=== PATIENT | female | born 1995 | race Caucasian/White ===

== ENCOUNTER 2017-05-25 14:51 | Inpatient (IN) | payer OTHER, MEDICAID ==
[~2017-05-25] VITALS: Ht 160 cm; Wt 86.5 kg
--- NOTE | ~2017-05-25 | OR ---
PATIENT'S NAME: [facility] AGE: 21 Y [address] ROOM: [place] [address] LOCATION: [facility] ADMIT DATE: 05/25/2017 OR/Procedure Report DISCHARGE DATE: FAMILY PHYSICIAN: PHYSICIAN, NO ATTENDING PHYSICIAN: Kym Alford SURGEON: Kym Alford MD DIRECTOR OF OFFICIATING: DATE OF PROCEDURE: 05/25/2017 PREOPERATIVE DIAGNOSES: 1. Intrauterine at 37 weeks and 2 days. 2. Dichorionic, diamniotic twins. 3. Gestational hypertension. 4. Intrauterine growth restriction of twin B. 5. Anemia. POSTOPERATIVE DIAGNOSES: 1. Intrauterine at 37 weeks and 2 days. 2. Dichorionic-diamniotic twins. 3. Gestational hypertension. 4. Intrauterine growth restriction of twin B. 5. Anemia. PROCEDURE: Primary low transverse section. DIRECTOR OF OFFICIATING SURGEON: Dr. Syed. Dr. Syed was necessary for adequate visualization of tissues and delivery of twin fetuses. ANESTHESIA: Spinal. ESTIMATED BLOOD LOSS: 500 mL. FINDINGS: Baby A male , score 8 and 9, weight 6 pounds and 1 ounce. Intact placenta with 3 vessel cord. Baby B female infant, score 8 and 9. Weight 4 pounds 13 ounces. Intact placenta with 2 vessel cord. Clear amniotic fluid for both. Normal uterus, tubes, and ovaries. Triple nuchal cord for baby B. DRAINS: Baumann. SPECIMENS: Placenta. COMPLICATIONS: None. INDICATIONS: The patient is a 21-year-old 1 female, who has been PATIENT'S NAME: [facility] AGE: 21 Y [address] ROOM: [place] [address] LOCATION: [facility] ADMIT DATE: 05/25/2017 OR/Procedure Report DISCHARGE DATE: FAMILY PHYSICIAN: PHYSICIAN, NO ATTENDING PHYSICIAN: Kym Alford followed in my office for dichorionic-diamniotic twins. Baby B has had intrauterine growth restriction but had reassuring test. The patient presented to the office today with hypertension. We talked about options for delivery and she opted for section. The risks, benefits, and alternatives to the procedure were discussed with the patient. She understood the risk to be, but not to be limited to, bleeding, infection, damage to the bowel, bladder, ureter, and surrounding organs and desired to proceed. PROCEDURE IN DETAIL: The patient was taken to the operating room where anesthesia was found to be adequate. She was prepped and draped in dorsal supine position with leftward tilt. A Pfannenstiel skin incision was made. It was carried down through to the fascia. The fascia was incised across the midline. The fascial incision was extended. Rectus muscles were . The peritoneum was entered. The bladder blade was inserted. The uterus was incised in a low transverse fashion with a scalpel. Uterine incision was extended with vertical traction. Surgeon's hand was inserted into the uterus. Baby A was delivered in the vertex presentation. The rest of fetus delivered. The nose and mouth were bulb suctioned. Cord was clamped and cut. The was handed to awaiting team. Cord blood was drawn. Baby B was a transverse. It was rotated to vertex and delivered in the vertex presentation. The rest of fetus delivered. The nose and mouth were bulb suctioned. Cord was clamped and cut. The was handed to awaiting team. Cord blood was drawn. The placenta delivered with manual traction. The uterus was exteriorized and cleared of clots and debris. It was repaired with 0 Vicryl in running locked fashion. It was returned to the abdomen with [id number] sutures used for hemostasis. The gutters were cleared of clots and debris. The fascia was repaired with 0 Vicryl in running fashion. Subcutaneous adipose tissues were irrigated. The skin was closed with 4-0 suture and Steri-Strips were placed. COMPLICATIONS: None. CONDITION: Mom stable in room. to nursery. MD MARISABEL PEDRAZA/iraida /[id number] d: 05/26/17 1008 t: 05/29/17 1022, OPERATIVE SUMMARY
[~2017-05-25 14:51] MED LIST: DERMOPLAST SPRA56 GM; DICLEGIS DR 101 EACH PO; PHENERGAN25 M1 PO; PHENERGAN25 MG PO; PRENATAL 1+1)(P1 TAB PO; PROTONIX40 MG PO; TRANSDERM SCOP1.5 MG TRANS; TUMS200 MG PO; ZOFRAN4 MG PO
[2017-05-25 15:50] LABS: BASOPHIL % 0.1 %; EOSINOPHIL % 0.2 %; HEMATOCRIT 29.6 % (33.0-46.0); HEMOGLOBIN 9.4 g/dL (11.0-15.0); IMMATURE GRANULOCYTE # 0.1 K/uL (0.0-0.3); IMMATURE GRANULOCYTE % 1.4 %; LYMPHOCYTE # 1.3 K/uL (0.8-4.0); LYMPHOCYTE % 14.2 %; MCH 26.4 pg (27.0-34.0); MCHC 31.8 gm/dL (32.0-36.5); MCV 83.1 fl (83.0-98.0); MONOCYTE # 0.7 K/uL (0.0-1.0); MONOCYTE % 7.7 %; MPV 10.1 fl (9.4-12.4); NEUTROPHIL # (ANC) 7.1 K/uL (1.8-7.8); NEUTROPHIL % 76.4 %; NRBC % 0.3 /100WBC (0-0.00); PLATELET COUNT 284 K/uL (150-450); RBC 3.56 M/uL (3.50-5.00); RDW-CV 17.4 % (11.9-14.6); WBC 9.3 K/uL (4.0-11.0)
[2017-05-25 16:21] LABS: ALBUMIN 2.4 gm/dL (3.5-5.0); ALK PHOS 222 IU/L (33-138); ALT 17 IU/L (12-78); ANION GAP 13.8 (10.0-19.0); AST 21 IU/L (10-40); BLOOD UREA NITROGEN 5 mg/dL (6-24); CALCIUM 8.6 mg/dL (8.5-10.5); CHLORIDE 108 mMol/L (96-110); CO2 21 mMol/L (22-32); CREATININE 0.7 mg/dL (0.5-1.1); ESTIMATED GFR (MDRD EQUATION) > 60; POTASSIUM 3.8 mMol/L (3.7-5.1); SODIUM 139 mMol/L (135-145); TOTAL BILIRUBIN 0.2 mg/dL (0.0-1.5); TOTAL PROTEIN 6.7 g/dL (6.0-8.4)
[2017-05-25] MEDS ORDERED: PHENERGAN25 M1 PO (16:22)
[2017-05-26 03:58] LABS: BASOPHIL % 0.1 %; EOSINOPHIL % 0.1 %; IMMATURE GRANULOCYTE # 0.1 K/uL (0.0-0.3); IMMATURE GRANULOCYTE % 0.6 %; LYMPHOCYTE # 1.6 K/uL (0.8-4.0); MCV 83.4 fl (83.0-98.0); MONOCYTE # 0.9 K/uL (0.0-1.0); MPV 9.8 fl (9.4-12.4); NEUTROPHIL # (ANC) 10.5 K/uL (1.8-7.8); NEUTROPHIL % 80.2 %; NRBC % 0 /100WBC (0-0.00); RBC 2.71 M/uL (3.50-5.00); RDW-CV 17.2 % (11.9-14.6); WBC 13.1 K/uL (4.0-11.0)
[2017-05-26 04:02] LABS: HEMATOCRIT 22.6 % (33.0-46.0); HEMOGLOBIN 7.2 g/dL (11.0-15.0); MCH 26.6 pg (27.0-34.0); MCHC 31.9 gm/dL (32.0-36.5); PLATELET COUNT 201 K/uL (150-450)
--- NOTE | 2017-05-26 06:15 | NUR ---
VSS, fundus firm, mid, small to mod flow, SL in R hand, Perc at 0500, Toradol due at 0700, Hgb 22.6, Plts 201
--- NOTE | 2017-05-26 16:33 | NUR ---
Met with mom and dad at bedside today. Introduced myself and SW engineer intern Nell. Explained the role of the CM department. Informed mom that she needs to contact insurance (medicaid) and inform them of the of the twins. I provided her with a list of community resources. She is already connected with the [facility] clinic. Provided her with a voucher to the [facility] for baby items. Discussed signs and symptoms of post depression and provided her with the handout on this subject. Mom and dad deny any discharge needs or concerns at this time. Will continue to monitor charts and offer supports if needed. Plan will be for mom and twins to discharge to home with no additional needs.
--- NOTE | 2017-05-27 05:06 | NUR ---
VSS. BPS 140S/70-80S. LAST HAD PERC/MOT AT 0230. FUNDUS FIRM, -1, SMALL FLOW. INCISION WNL. TAKES IRON.
--- NOTE | 2017-05-28 04:53 | NUR ---
VSS. FUNDUS FIRM,EVEN 1 DOWN. SMALL FLOW. PERCOCET LAST AT 0209. MOTRIN LAST AT 2037. BREAST FEEDING WELL WITH USE OF SHIELD. PLANNING ON GOING HOME TODAY.
[2017-05-28] MEDS ORDERED: MOTRIN800 MG PO (10:58)
[2017-05-28] MEDS ORDERED: FEOSOL325 MG PO (10:58)
[2017-05-28] MEDS ORDERED: PERCOCET 5-3251 EACH PO (10:59)
== END 2017-05-28 17:05 | disposition disaster alternative care site (69) | DRG 765 ==
LOC: GOBS 14:51
PROVIDERS: ADMIT Obstetrics & Gynecology
PROC: 10D00Z1 Extraction of Products of Conception, Low, Open Approach (ICD-10-PCS; principal; 2017-05-25)
DX: O13.4 Gestational [pregnancy-induced] hypertension without significant proteinuria, complicating childbirth (principal); O36.5932 Maternal care for other known or suspected poor fetal growth, third trimester, fetus 2; O30.043 Twin pregnancy, dichorionic/diamniotic, third trimester; Z37.2 Twins, both liveborn; O99.02 Anemia complicating childbirth; O69.81X2 Labor and delivery complicated by cord around neck, without compression, fetus 2; O32.2XX2 Maternal care for transverse and oblique lie, fetus 2; D64.9 Anemia, unspecified; Z3A.37 37 weeks gestation of pregnancy
CPT/HCPCS: J0690; J1885; J2001; J2270; J2405; J2590; J7120; Q0162